=== PATIENT | female | born 1990 | race Caucasian/White ===

== ENCOUNTER 2016-10-17 21:59 | Inpatient (IN) | payer OTHER, MEDICAID ==
[2016-10-17 22:58] LABS: ABSOLUTE EOSINOPHILS # (AUTO) 0.1 10^3/uL (0.0-0.6); ABSOLUTE LYMPHOCYTES (AUTO) 2.3 10^3/uL (0.5-4.7); ABSOLUTE MONOCYTES (AUTO) 0.9 10^3/uL (0.1-1.4); ABSOLUTE NEUT (AUTO) 6.6 10^3/uL (1.7-8.2); BASOPHILS % (AUTO) 0.4 % (0-2); EOSINOPHILS % (AUTO) 1.2 % (0-6); HEMATOCRIT 36.1 % (36.0-47.0); HEMOGLOBIN 12.6 g/dL (12.0-15.5); HGB HCT DIFFERENCE 1.7; LYMPHOCYTES % (AUTO) 22.8 % (13-45); MEAN CORPUSCULAR HGB CONC 34.9 g/dL (32.0-36.0); MEAN CORPUSCULAR VOLUME 95 fl (80-97); MONOCYTES % (AUTO) 8.8 % (3-13); RED BLOOD COUNT 3.82 10^6/uL (3.72-5.28); SEGMENTED NEUTROPHILS % (AUTO) 66.8 % (42-78); WHITE BLOOD COUNT 9.9 10^3/uL (4.0-10.5)
[2016-10-17] MEDS ORDERED: OXYTOCIN/NORMAL SALINE 20 UNIT/1,000 ML RTUINJ IV PRN (23:00)
[2016-10-17] MEDS ORDERED: RINGERS SOLUTION,LACTATED 300 ML IV ONE (23:00)
[2016-10-17 23:06] LABS: APPEARANCE,URINE SLIGHTLY-CLOUDY; BILIRUBIN,URINE NEGATIVE (NEGATIVE); GLUCOSE, URINE NEGATIVE (NEGATIVE); KETONES,URINE NEGATIVE (NEGATIVE); LEUKOCYTE ESTERASE,URINE TRACE (NEGATIVE); NITRITE,URINE NEGATIVE (NEGATIVE); PROTEIN,URINE NEGATIVE (NEGATIVE); URINE SPECIFIC GRAVITY 1.023; UROBILINOGEN,URINE NEGATIVE mg/dL (<2.0)
[2016-10-17 23:19] LABS: URINE BARBITURATES SCREEN NEGATIVE; URINE METHADONE SCREEN NEGATIVE; URINE OPIATES LOW NEGATIVE; URINE PHENCYCLIDINE SCREEN NEGATIVE
[2016-10-18] MEDS: RINGERS SOLUTION,LACTATED 1,000 ML IV PRN ×2 (01:25→06:28)
[2016-10-18] MEDS ORDERED: OXYTOCIN/NORMAL SALINE 0 UNIT/0 ML RTUINJ ONE (01:59)
--- NOTE | 2016-10-18 07:41 | L&D Progress Notes ---
PROGRESS NOTES Datetime Report Generated by CPN: 10/18/2016 07:40 PROGRESS NOTE Impression: Normal Progression of Labor Procedures: Artificial ROM; Sterile Vag Exam Plan: Continue Present Management; Induction Informed Consent Obtained: Vaginal Delivery; Risks, Benefits and Alternatives Discussed Vital Signs : Reviewed; Within Normal Limits Comment: Pt feeling ctx but not strong. Here for IOL. Cvx changed and now /-1. AROM with clear fluid noted. Pitocin at 20. May need to adjust pitocin dosing to help improve ctx pattern. No need to have a pitocin rest at this time. Continue with IOL at this time. Anticpate VAGINAL EXAM Dilatation: 5 Effacement: 60 Station: -1 MEMBRANES Membranes: Ruptured Amniotic Fluid Color: Clear FETUS A FHR - Baseline: 125 Monitoring: External US Variability: Moderate 6-25bpm Accelerations: 15X15 Decelerations: None FHR Category: Category I Estimated Weight (gm): 3212 Presentation: Vertex SIGNATURE SIGNATURE: [id number] Signature: with User ID: [email or web address]
[2016-10-18] MEDS ORDERED: MISOPROSTOL 0.2 MG TABLET ONE (08:12)
[2016-10-18] MEDS ORDERED: EPHEDRINE SULFATE INJ 50 MG/1 ML AMPULE ONE (08:12)
[2016-10-18] MEDS ORDERED: LIDOCAINE 1% INJ-PF (10 MG/ML) 30 ML SDV ONE (08:13)
[2016-10-18] MEDS ORDERED: OXYTOCIN/NORMAL SALINE 20 UNIT/1,000 ML RTUINJ ONE (08:13)
[2016-10-18] MEDS ORDERED: FENTANYL/BUPIVACAINE/NS/PF 200 MCG/100 ML RTUINJ EPI ONE (08:13)
[2016-10-18] MEDS ORDERED: BUPIVACAINE HCL 0.25 % INJ/PF (2.5 MG/1 ML) 30 ML VIAL ONE (08:13)
--- NOTE | 2016-10-18 10:26 | L&D Progress Notes ---
PROGRESS NOTES Datetime Report Generated by CPN: 10/18/2016 10:26 PROGRESS NOTE Plan: Continue Present Management; Induction Informed Consent Obtained: Vaginal Delivery Vital Signs : Reviewed; Within Normal Limits Comment: Comfortable with epidural, family at bedside, Cat 1 strip, early decelerations, uc's q 2-3 min, moderate, continue to monitor closely FETUS A Monitoring: External US Variability: Moderate 6-25bpm Decelerations: Early FETUS C SIGNATURE: [id number] Assignment: Tara Santana MD Signature: with User ID: Maria C : with User ID: Maria [email or web address]
[2016-10-18] MEDS ORDERED: OXYTOCIN/NORMAL SALINE 1,000 ML IV PRN (14:44)
[2016-10-18] MEDS ORDERED: PROMETHAZINE HCL 25 MG TABLET PO PRN (14:44)
[2016-10-18] MEDS ORDERED: GLYCERIN/WITCH HAZEL LEAF 1 EACH MED..PAD TP PRN (14:44)
[2016-10-18] MEDS ORDERED: BENZOCAINE/MENTHOL AEROSOL SPRAY 56 ML TOP PRN (14:44)
[2016-10-18] MEDS ORDERED: DIPHENHYDRAMINE HCL 25 MG CAPSULE PO PRN (14:44)
[2016-10-18] MEDS ORDERED: PSEUDOEPHEDRINE HCL 30 MG TABLET PO PRN (14:44)
[2016-10-18] MEDS ORDERED: MAGNESIUM HYDROXIDE SUSP 30 ML UDCUP PO PRN (14:44)
[2016-10-18] MEDS ORDERED: MEASLES,MUMPS&RUBELLA VACC/PF 0.5 ML VIAL SUBCUT PRN (14:44)
[2016-10-18] MEDS ORDERED: DIBUCAINE 1% OINTMENT 28 GM TP PRN (14:44)
[2016-10-18] MEDS ORDERED: PROMETHAZINE HCL 25 MG SUPP.RECT PR PRN (14:44)
[2016-10-18] MEDS ORDERED: PROMETHAZINE HCL INJ 25 MG/1 ML VIAL IV PRN (14:44)
[2016-10-18] MEDS ORDERED: MISOPROSTOL 0.2 MG TABLET PR ONE (14:44)
[2016-10-18] MEDS ORDERED: ACETAMINOPHEN WITH CODEINE #3 TABLET PO PRN ×2 (14:44)
[2016-10-18] MEDS ORDERED: DIPH/PERTUSS(ACELL)/TETANUS VAC/PF 0.5 ML SYR (>=10YO) IM PRN (14:44)
[2016-10-18] MEDS ORDERED: ACETAMINOPHEN 650 MG SUPP.RECT PR PRN (14:44)
[2016-10-18] MEDS ORDERED: NA PHOS,M-B/NA PHOS,DI-BA (ADULT) 133 ML ENEMA PR PRN (14:44)
--- NOTE | 2016-10-18 16:28 | Admission Physical ---
Datetime Report Generated by CPN: 10/18/2016 16:28 CURRENT ADMISSION Chief Complaint: Scheduled Induction of Labor Indication for Induction: Post Dates Admit Plan: Admit to Unit; Initiate Labor Induction Protocol ALLERGIES Medication Allergies: Yes Medication Allergies: Sulfa (Sulfonamide Antibiotics) (10/17/2016) Latex: No Latex Allergies OBSTETRICAL HISTORY EDC: 10/10/2016 00:00 : 1 Para: 0 Term: 0 : 0 SAB: 0 IAB: 0 Ectopic: 0 Livin Cesareans: 0 VBACs: 0 Multiple Births: 0 Gestational Diabetes: No Rh Sensitization: No Incompetent Cervix: No JHOAN: No Infertility: No ART Treatment: No Uterine Anomaly: No IUGR: No Hx Previous C/S: No Macrosomia: No Hx Loss/Stillborn: No PIH: No Hx : No Placenta Previa/Abruption: No Depression/PP Depression: No PTL/PROM: No Post Hemorrhage: No Current Procedures: Ultrasound; NST Obstetrical History Comments: G1- current SEE RECORDS Alcohol: No Marijuana : No Cocaine: No Other Illicit Drugs: No Cigarettes: Never Smoker. [id number] MEDICAL HISTORY Diabetes: No Blood Transfusion: No Pulmonary Disease (Asthma, TB): No Breast Disease: No Hypertension: No Career And Guidance Counselor Surgery: No Heart Disease: No Hosp/Surgery: Yes Autoimmune Disorder: No Anesthetic Complications: No Kidney Disease: No Abnormal Pap Smear: No Neuro/Epilepsy: No Psychiatric Disorders: No Other Medical Diseases: No Hepatitis/Liver Disease: No Significant Family History: No Varicosities/Phlebitis: No Trauma/Violence : No Thyroid Dysfunction: No Medical History Comments: Tonillectomy, [place] Teeth, Ear tubes INFECTIOUS HISTORY Gonorrhea: No Genital Herpes: No Chlamydia: No Tuberculosis: No Syphilis: No Hepatitis: No HIV/AIDS Exposure: No Rash or Viral Illness: No HPV: No PHYSICAL EXAM General: Normal HEENT: Normal Neurologic: Normal Thyroid: Normal Heart: Normal Lungs: Normal Breast: Deferred Back: Normal Abdomen: Normal Genitourinary Exam: Normal Extremities: Normal DTRs: Normal Pelvic Type: Adequate Physical Exam Comments: pelvis unproven VAGINAL EXAM Dilatation: 5 Effacement: 60 Station: -1 MEMBRANES Membranes: Ruptured Amniotic Fluid Color: Clear FETUS A EGA: 41.1 Monitoring: External US FHR- Baseline: 120 Variability: Moderate 6-25bpm Accelerations: 15X15 Decelerations: None FHR Category: Category I Estimated Weight (gm): 3212 Presentation: Vertex Admit Comment: 26yo at 41+1ega presents for scheduled IOL with favorable cvx 3-4/50/-2. Pt has been measureing size less than dates. US on 10/16 c/w 7#1oz. c/b late transfer of care from [place]. GBS negative. Labs reviewed and normal. See records in chart. Pt denies significant PMH. Admit for pitocin induction and anticipate . PLANS FOR LABOR AND DELIVERY Labor and Delivery: None Pain Management: Epidural Feeding Preference: Breast Benefit of Breast Feed Discussed: Yes Circumcision: Yes INFORMED CONSENT Informed Consent Obtained: Vaginal Delivery Informed Consent Obtained: Vaginal Delivery; Risks, Benefits and Alternatives Discussed Signature: with User ID: [email or web address]
[2016-10-18] MEDS: DOCUSATE SODIUM 100 MG CAPSULE PO SCH (18:26)
[2016-10-18] MEDS: FERROUS SULFATE 325 MG TABLET PO SCH (18:26)
[2016-10-18] MEDS: IBUPROFEN 800 MG TABLET PO SCH (21:46)
[2016-10-18] MEDS: FAMOTIDINE 20 MG TABLET PO SCH (21:46)
[2016-10-19] MEDS: IBUPROFEN 800 MG TABLET PO SCH ×3 (05:59→22:19)
[2016-10-19 08:00] LABS: HEMATOCRIT 32.6 % (36.0-47.0); HEMOGLOBIN 11.2 g/dL (12.0-15.5); MEAN CORPUSCULAR HEMOGLOBIN 32.4 pg (27.0-33.4); MEAN CORPUSCULAR HGB CONC 34.4 g/dL (32.0-36.0); MEAN CORPUSCULAR VOLUME 94 fl (80-97); RED BLOOD COUNT 3.46 10^6/uL (3.72-5.28); RED CELL DISTRIBUTION WIDTH 13.2 % (11.5-14.0); WHITE BLOOD COUNT 10.4 10^3/uL (4.0-10.5)
--- NOTE | 2016-10-19 09:23 | PDOC PROGRESS REPORT ---
Subjective-OB Subjective: Post Delivery Day:1 26 year old. Denies any needs at this time, lochia is stable, pain well controlled, voiding without difficulty. Physical Exam (OB) Vital Signs: Temp Pulse Resp BP Pulse Ox 98.0 F 86 16 126/84 H 99 10/19/16 07:46 10/19/16 07:46 10/19/16 07:46 10/19/16 07:46 10/19/16 07:46 Intake & Output 10/18/16 10/19/16 10/20/16 06:59 06:59 06:59 Weight 89.95 kg - PIH/Pre-Eclampsia DTR's: 2 + Clonus: Negative Headache: Absent Epigastric Pain: No Visual Changes: No - Lochia Lochia Amount: Moderate 25-50 ml Lochia Color: Rubra/Red - Abdomen Description: Soft, Distended Hernia Present: No Fundal Description: Firm Fundal Height: u/u - u/2 Objective-Diagnostic Laboratory: 10/19/16 07:07 10/19/16 07:07 WBC 10.4 RBC 3.46 L Hgb 11.2 L Hct 32.6 L MCV 94 MCH 32.4 MCHC 34.4 RDW 13.2 Plt Count 162 Assessment and Plan(PN) - Assessment and Plan (1) Vaginal delivery Is this a current diagnosis for this admission?: YesPlan: routine post op care - Time Spent with Patient Time with patient: Less than 15 minutes Critical Time spent with patient: Less than 15 minutes Medications reviewed and adjusted accordingly: Yes - Disposition Anticipated Discharge: Home Within: within 24 hours
--- NOTE | 2016-10-19 09:47 | Delivery Summary ---
Del Sum A-C Datetime Report Generated by CPN: 10/19/2016 09:46 DELIVERY PERSONNEL DELIVERY PERSONNEL: [phone] DELIVERY PERSONNEL: [phone] DELIVERY PERSONNEL: [phone] Delivery Doctor:: Mamta Verma CNM Nurse Wetland Scientist Certified:: Mamta Verma CNM Labor and Delivery Nurse:: Niecy Galindo RNmarketing pr intern Nurse:: Manuela Rutledge RN Sandwich Counter Attendant:: Aneta Simmons RN Nursery Nurse:: Yvan Rizzo RN Fire Engineer/FUNERAL HOME ASSISTANT: Dina Chin CST Fire Engineer/FUNERAL HOME ASSISTANT: Caitie Galindo CNA II MATERNAL INFORMATION Delivery Anesthesia: Epidural Medications After Delivery: Pitocin Bolus-Please Comment; Pitocin Drip 20 Units/1000ml NSS; Cytotec 600mcg Per Rectum/Vagina Estimated Blood Loss (ml): 300 Maternal Complications: None Provider Comments: Progressed quickly after starting to push viable male from OA to CAMILLA over ML lac. Baby placed on mothers abd for bonding, cord blood to lab, Spont delivery of grossly normal intact placenta, 3 VC, placenta had calcifications, laceration repaired with 2-0 chromic without difficulty. cervix intact, rectum patent, cytotec 600 mcg in rectum. Mom and baby remains in recovery in stable condition. EBL 300 (Annotations: Data stored by [facility] on behalf of user) LABOR SUMMARY EDC: 10/10/2016 00:00 No. Babies in Womb: 1 Attempted: No Labor Anesthesia: Epidural LABOR INFORMATION Reason for Induction: Post Dates Onset of Labor: 10/18/2016 07:34 Complete Dilatation: 10/18/2016 13:13 Oxytocin: Induction Group B Beta Strep: negative (Annotations: Data stored by [facility] on behalf of user) Antibiotics # of Doses: 0 Steroids Given: None Reason Steroids Not Administered: Not Applicable MEMBRANES Membranes Rupture Method: Artificial Rupture of Membranes: 10/18/2016 07:34 Length of Rupture (hr): 6.30 Amniotic Fluid Color: Clear Amniotic Fluid Amount: Moderate Amniotic Fluid Odor: None STAGES OF LABOR Stage 1 hr: 5 Stage 1 min: 39 Stage 2 hr: 0 Stage 2 min: 39 Stage 3 hr: 0 Stage 3 min: 6 Total Time in Labor hr: 6 Total Time in Labor min: 24 VAGINAL DELIVERY Episiotomy: None Laceration Extension: First Degree Laceration Type: Perineal Other Laceration: midline lac Laceration Repair: Yes Sponge Count Correct: N/A; Vaginal Sweep Performed Sharps Count Correct: N/A CSECTION DELIVERY Primary Indication: N/A Secondary Indication: N/A CSection Incidence: N/A Labor: N/A Elective: N/A CSection Incision: N/A BABY A INFORMATION Delivery Date/Time: 10/18/2016 13:52 Method of Delivery: Vaginal Born in Route : No : N/A Forceps: N/A Vacuum Extraction: N/A Shoulder Dystocia : No PRESENTATION/POSITION BABY A Presentation: Cephalic Cephalic Presentation: Vertex Vertex Position: Left Occipital Anterior Breech Presentation: N/A PLACENTA INFORMATION BABY A Placenta Delivery Time : 10/18/2016 13:58 Placenta Method of Delivery: Spontaneous Placenta Status: Delivered SCORES BABY A Heart Rate 1 min: >100 bpm Resp Effort 1 min: Good Cry Reflex Irritability 1 min: Cough or Sneeze or Pulls Away Muscle Tone 1 min: Active Motion Color 1 min: Blue/Pale Resuscitation Effort 1 min: Tactile Stimulation SCORE 1 MIN: 8 Heart Rate 5 min: >100 bpm Resp Effort 5 min: Good Cry Reflex Irritability 5 min: Cough or Sneeze or Pulls Away Muscle Tone 5 min: Active Motion Color 5 min: Body [place], Extremities Blue Resuscitation Effort 5 min: N/A SCORE 5 MIN: 9 Resuscitation Effort 10 min: N/A INFANT INFORMATION BABY A Gestational Age at Delivery: 41.1 Gestational Status: Late Term- 41- 41.6 Weeks Outcome : Liveborn Condition : Stable Sex: Male IDENTIFICATION BABY A Infant Verification Date/Time: 10/18/2016 14:13 ID Band Number: [id number] Mother's Name Verified: Yes Infant RN Verifying : BL ROULUND, RN Additional Verifying Personnel: A TAYLOR, RN WEIGHT/LENGTH BABY A Infant Birthweight (gm): 3225 Weight (lb): 7 Weight (oz): 2 Length (in): 20.50 Infant Length (cm): 52.07 CORD INFORMATION BABY A No. Cord Vessels: 3 Nuchal Cord : Around Neck x1, Loose Cord Blood Taken: Yes-For Eval (Mom's Blood Type - or O+) Infant Suction: Mouth; Nose ASSESSMENT BABY A Infant Complications: None Physical Findings at Delivery: Molding of the Head Respirations: Appears Normal Skin to Skin: Yes Skin to Skin Time (min): 90 (Annotations: Data stored by N on behalf of user) Interactive Video Technician/ALS Called : No Infant Care By: yvan rizzo rn Transferred To: Remains with Mother BABY B INFORMATION : N/A
[2016-10-19] MEDS: PRENATAL VITAMIN W-O CA NO5/FE FUMARATE/FA CAPSULE PO SCH (09:53)
[2016-10-19] MEDS: FERROUS SULFATE 325 MG TABLET PO SCH ×2 (09:54→17:55)
[2016-10-19] MEDS: FAMOTIDINE 20 MG TABLET PO SCH ×2 (09:54→22:19)
[2016-10-19] MEDS: DOCUSATE SODIUM 100 MG CAPSULE PO SCH ×2 (09:54→17:55)
[2016-10-19] MEDS: SENNOSIDES/DOCUSATE 8.6-50 MG 1 EACH TABLET PO SCH (09:54)
[2016-10-20] MEDS: IBUPROFEN 800 MG TABLET PO SCH (05:17)
[2016-10-20 08:07] VITALS: BP 106/63
--- NOTE | 2016-10-20 09:04 | PDOC DISCHARGE SUMMARY ---
Final Diagnosis Discharge Date: 10/20/16 - Final Diagnosis (1) Vaginal delivery Is this a current diagnosis for this admission?: Yes Discharge Data - Discharge Medication Home Medications: Prenat Vit Comb.10/Iron/FA/Dha [Vitafol-Ob+Dha Combo Pack] 1 each PO DAILY 10/17 Docusate Sodium [Colace 100 mg Capsule] 100 mg PO BID #60 capsule 10/20/16 Ibuprofen [Motrin 800 mg Tablet] 800 mg PO Q8 #60 tablet 10/20/16 Gestational Age: 41.1 Reason(s) for Admission: Induction of Labor Procedures: NST Intrapartum Procedure(s): Spontaneous Vaginal Delivery Complication(s): Laceration-Vaginal Laceration-Degree: 1st - Data Baby 1 Male at 1 minute: 8 at 5 minutes: 9 Weight: 3225 kg Home with Mother: No Complications: Yes - low blood sugar - Diagnosis Test Laboratory: Temp Pulse Resp BP Pulse Ox 97.7 F 59 L 20 106/63 100 10/20/16 07:37 10/20/16 07:37 10/20/16 07:37 10/20/16 07:37 10/20/16 07:37 10/17/16 10/17/16 10/19/16 22:25 22:48 07:07 RBC 3.82 3.46 L Hgb 12.6 11.2 L Hct 36.1 32.6 L Urine Opiates Screen NEGATIVE - Discharge information/Instructions Discharge Activity: Activity As Tolerated, Pelvic Rest, No tub bath Discharge Diet: Regular Disposition: HOME, SELF-CARE Follow up with: [facility] in: 4, Weeks
[2016-10-20] MEDS: PRENATAL VITAMIN W-O CA NO5/FE FUMARATE/FA CAPSULE PO SCH (11:03)
[2016-10-20] MEDS: FAMOTIDINE 20 MG TABLET PO SCH (11:03)
[2016-10-20] MEDS: DOCUSATE SODIUM 100 MG CAPSULE PO SCH (11:03)
[2016-10-20] MEDS: SENNOSIDES/DOCUSATE 8.6-50 MG 1 EACH TABLET PO SCH (11:04)
[2016-10-20] MEDS: FERROUS SULFATE 325 MG TABLET PO SCH (11:04)
== END 2016-10-20 13:53 | disposition home or self-care (01) | DRG 775 ==
LOC: LR 21:59 → 2S 10-18 16:27
PROVIDERS: ADMIT Student in an Organized Health Care Education/Training Program; ATTEND Student in an Organized Health Care Education/Training Program
PROC: 10E0XZZ Delivery of Products of Conception, External Approach (ICD-10-PCS; principal; 2016-10-18)
PROC: 0HQ9XZZ Repair Perineum Skin, External Approach (ICD-10-PCS; 2016-10-18)
PROC: 4A1HXCZ Monitoring of Products of Conception, Cardiac Rate, External Approach (ICD-10-PCS; 2016-10-18)
PROC: 3E033VJ Introduction of Other Hormone into Peripheral Vein, Percutaneous Approach (ICD-10-PCS; 2016-10-18)
DX: O48.0 Post-term pregnancy (principal); O69.81X0 Labor and delivery complicated by cord around neck, without compression, not applicable or unspecified; O70.0 First degree perineal laceration during delivery; Z37.0 Single live birth; Z3A.41 41 weeks gestation of pregnancy; Z88.2 Allergy status to sulfonamides
CPT/HCPCS: 36415; 80307; 81005; 85025; 85027; 86592; 86850; 86900; 86901; 88307; 94760; J2590; J3490